=== PATIENT | female | born 1990 | race Two or more races ===

== ENCOUNTER 2020-10-16 01:23 | Emergency (ER) | payer OTHER ==
[2020-10-16 08:10] LABS: HEMOGLOBIN 11.2 gm/dl (12.3-15.3); RED BLOOD COUNT 4.54 M/UL (4.00-5.10); WHITE BLOOD COUNT 9.7 K/UL (4.5-11.0)
== END 2020-10-16 09:18 | disposition home or self-care (01) ==
LOC: ER1 01:23
PROVIDERS: Physician Assistant
DX: K50.90 Crohn's disease, unspecified, without complications (principal); E86.9 Volume depletion, unspecified; Z90.49 Acquired absence of other specified parts of digestive tract; F17.200 Nicotine dependence, unspecified, uncomplicated
CPT/HCPCS: 80053; 83735; 85025; 99284